=== PATIENT | female | born 1990 | race Two or more races ===

== ENCOUNTER 2017-10-30 17:18 | Emergency (ER) | payer OTHER | END 2017-10-30 17:48 | disposition home or self-care (01) | LOC: ER 17:18 | DX: B80 Enterobiasis (principal); Z90.49 Acquired absence of other specified parts of digestive tract | CPT/HCPCS: 99283 ==

== ENCOUNTER 2020-02-14 00:45 | Emergency (ER) | payer BC, OTHER ==
[~2020-02-14] VITALS: Ht 165.1 cm; Wt 65.0 kg
[~2020-02-14 00:45] MED LIST: DICY20TA30 PO; MEBE100T11 PO
--- NOTE | 2020-02-14 01:50 | PHYS DOC ---
Past Medical History Past Medical History: No Pertinent History, Migraines Past Surgical History: Appendectomy, , Tubal ligation Additional Past Surgical Histo: WISDOM TEETH Smoking Status: Never Smoker Alcohol Use: Occasionally Drug Use: None General Adult EDM: Chief Complaint: MULTIPLE COMPLAINTS HPI: HPI: The history was obtained from the patient. Patient is a 29-year-old female with PMH ynr-krmgihh-epajbxosp diabetic who presents with a chief complaint of nausea and lightheadedness. 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 She states she became acutely nauseous. She notes one episode of nonbloody nonbilious emesis prior to arrival. She states that she tried to sit down and eat something at work but she was too nauseous. She does note some a ssociated lightheadedness. Denies any vertiginous symptoms. States she has been drinking fluid at work. Denies chest pain or shortness of breath. Denies any syncope. Denies any feelings of irregular rapid heartbeat. States she is currently menstruating. Denies abdominal pain. D states she takes metformin daily. Denies any objective fevers. No other complaints. Review of Systems: Review of Systems: Constitutional: Denies fever or chills. [] Eyes: Denies change in visual acuity. [] HENT: Denies nasal congestion or sore throat. [] Respiratory: Denies cough or shortness of breath. [] Cardiovascular: Denies chest pain or edema. [] GI: Positive for nausea and vomiting : Denies dysuria. [] Musculoskeletal: Denies back pain or joint pain. [] Integument: Denies rash. [] Neurologic: Denies headache, focal weakness or sensory changes. [] Endocrine: Denies polyuria or polydipsia. [] Lymphatic: Denies swollen glands. [] Psychiatric: Denies depression or anxiety. [] Heart Score: Risk Factors: Risk Factors: DM, Current or recent (<one month) smoker, HTN, HLP, family history of CAD, obesity. Risk Scores: Score 0 - 3: 2.5% MACE over next 6 weeks - Discharge Home Score 4 - 6: 20.3% MACE over next 6 weeks - Admit for Clinical Observation Score 7 - 10: 72.7% MACE over next 6 weeks - Early Invasive Strategies Allergies: Allergies: Allergies Coded Allergies Type Severity Reaction Last Updated Verified No Known Drug Allergies 01/17/15 No Physical Exam: PE: Constitutional: Well developed, well nourished, no acute distress, non-toxic appearance. [] HENT: Normocephalic, atraumatic, bilateral external ears normal, oropharynx moist, no oral exudates, nose normal. [] Eyes: PERRLA, EOMI, conjunctiva normal, no discharge. [] Neck: Normal range of motion, no tenderness, supple, no stridor. [] Cardiovascular:Heart rate regular rhythm, no murmur [] Lungs & Thorax: Bilateral breath sounds clear to auscultation [] Abdomen: Soft, nontender, nonacute abdomen. No involuntary guarding or rigidity noted. No acute peritonitis. Skin: Warm, dry, no erythema, no rash. [] Back: No tenderness, no CVA tenderness. [] Extremities: No tenderness, no cyanosis, no clubbing, ROM intact, no edema. [] Neurologic: Alert with intact cognitive function. No aphasia, dysarthria, or neglect. GCS 15. Pupils 3 mm briskly reactive b/l. No APD present. Cranial nerves 2-12 grossly intact; no facial asymmetry present, tongue midline, shoulder shrugging strength intact. Strength 5/5 and symmetric throughout. Light touch sensation intact throughout. Cerebellar testing appropriate without evidence of dysdiadochokinesia. DTR's 2+ in all 4 extremities. Negative pronator drift bilaterally. Gait normal Psychologic: Affect normal, judgement normal, mood normal. [] Current Patient Data: Labs: Laboratory Tests Test 02/14/20 01:07 POC Urine HCG, Qualitative Hcg negative (Negative) Vital Signs: Vital Signs Date Time Temp Pulse Resp B/P (MAP) Pulse Ox O2 Delivery O2 Flow Rate FiO2 02/14/20 01:25 98.3 86 16 131/85 (100) 100 Room Air 98.3 EKG: EKG: EKG consistent with normal sinus rhythm. Ventricular rate of 75 bpm. [place] normal. Artifact is present making interpretation difficult but no acute ischemic changes appreciated. [] Radiology/Procedures: Radiology/Procedures: [facility] [address] [place], [place] [id number] IMAGING REPORT Signed PATIENT: RENETTAJERICHO ACCOUNT: [id number] : 1990 LOCATION: ER AGE: 29 SEX: F EXAM STATUS: REG ER ORD. PHYSICIAN: JOCELYN FLOREZ DO REASON: lightheaded PROCEDURE: CHEST AP ONLY CHEST AP ONLY Clinical Indication: Reason: lightheaded / Spl. Instructions: / History: Comparison: None. Findings: The cardiomediastinal silhouette is normal. Tiny bilateral calcified granulomas are suggested. Lungs are clear. There is no pneumothorax. No pleural effusion is appreciated. No acute bone abnormality. IMPRESSION: No acute cardiopulmonary process. Electronically signed by: Dean Garza MD (02/14/2020 2:08 AM) [facility] DICTATED and SIGNED BY: DEAN GARZA MD DATE: 02/14/208 [] Course & Med Decision Making: Course & Med Decision Making Pertinent Labs and Imaging studies reviewed. (See chart for details) [] Patient is a well-appearing 29-year-old female presents with chief complaint of nausea and lightheadedness. Initial vital signs normal. EKG unremarkable. Labs obtained and unremarkable. Patient was given IV fluids. She states her symptoms have improved. Do not feel she requires hospitalization. She has tolerated p.o. She will be discharged home with a prescription of Zofran. Return precautions discussed and understood. Stable for discharge home. Anastasia Disclaimer: Anastasia Disclaimer: This electronic medical record was generated, in whole or in part, using a voice recognition dictation system. Departure Departure Impression: Primary Impression: Nausea Disposition: 01 HOME, SELF-CARE Referrals: NO PCP (PCP) Patient Instructions: Nausea and Vomiting Additional Instructions: Please follow-up with your primary care physician in the next 2 to 3 days. Scripts Ondansetron Hcl (ZOFRAN) 4 Mg Tablet 4 MG PO PRN TID for nausea, #9 nausea/vomiting Prov: JOCELYN FLOREZ DO 02/14/20 Justicifation of Admission Dx: Justifications for Admission: Justification of Admission Dx: N/A JOCELYN FLOREZ DO Feb 14, 2020 01:50
[2020-02-14] MEDS ORDERED: IV NORMAL SALINE 1000ML BAG 1,000 ML IV ONE (02:00)
[2020-02-14] MEDS ORDERED: ONDANSETRON ODT 4 MG TAB.RAPDIS. PO ONE (02:00)
[2020-02-14 02:05] LABS: BASO # 0.1 x10^3/uL (0.0-0.2); BASO % 1 % (0-3); EOS # 0.2 x10^3/uL (0.0-0.7); EOS % 3 % (0-3); HEMATOCRIT 38.8 % (36.0-47.0); HEMOGLOBIN 12.9 g/dL (12.0-15.5); LYMPH # 2.9 x10^3/uL (1.0-4.8); LYMPH % 35 % (24-48); MEAN CORPUSCULAR HEMOGLOBIN 30 pg (25-35); MEAN CORPUSCULAR HGB CONC 33 g/dL (31-37); MEAN CORPUSCULAR VOLUME 91 fL (79-100); MONO # 0.4 x10^3/uL (0.0-1.1); MONO % 5 % (0-9); NEUT # 4.7 x10^3/uL (1.8-7.7); NEUT % 57 % (31-73); PLATELET COUNT 258 x10^3/uL (140-400); RED BLOOD COUNT 4.27 x10^6/uL (3.50-5.40); RED CELL DISTRIBUTION WIDTH 12.9 % (11.5-14.5); WHITE BLOOD COUNT 8.4 x10^3/uL (4.0-11.0)
--- NOTE | 2020-02-14 02:11 | RAD ---
CHEST AP ONLY Clinical Indication: Reason: lightheaded / Spl. Instructions: / History: Comparison: None. Findings: The cardiomediastinal silhouette is normal. Tiny bilateral calcified granulomas are suggested. Lungs are clear. There is no pneumothorax. No pleural effusion is appreciated. No acute bone abnormality. IMPRESSION: No acute cardiopulmonary process. Electronically signed by: Dean Garza MD (02/14/2020 2:08 AM) [facility]
[2020-02-14 02:12] LABS: BILIRUBIN,URINE NEGATIVE (NEG); CLARITY,URINE CLEAR; COLOR,URINE YELLOW; NITRITE,URINE NEGATIVE (NEG); PH,URINE 5.5 (<5.0-8.0); PROTEIN,URINE NEGATIVE (NEG-TRACE); UROBILINOGEN,URINE 0.2 mg/dL (0.2 mg/dL)
[2020-02-14 02:16] LABS: CREATININE 0.8 mg/dL (0.6-1.0); GFR 85.4; POTASSIUM 3.7 mmol/L (3.5-5.1)
[2020-02-14 02:17] LABS: BACTERIA,URINE 0 /HPF (0-FEW); RBC,URINE OCC /HPF (0-2); WBC,URINE OCC /HPF (0-4)
[2020-02-14 02:18] LABS: SQUAMOUS EPITHELIAL CELL,UR MOD /LPF
[2020-02-14] MEDS ORDERED: ONDA4TAB7 PO (02:33)
[2020-02-14 02:45] VITALS: BP 123/77
--- NOTE | 2020-02-14 07:15 | EKG ---
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
== END 2020-02-14 02:52 | disposition home or self-care (01) ==
LOC: ER 00:45
DX: R11.2 Nausea with vomiting, unspecified (principal); R42 Dizziness and giddiness; G43.909 Migraine, unspecified, not intractable, without status migrainosus; E11.9 Type 2 diabetes mellitus without complications; I48.92 Unspecified atrial flutter; Z90.89 Acquired absence of other organs; Z98.51 Tubal ligation status
CPT/HCPCS: 36415; 71045; 80048; 81001; 81025; 85025; 93005; 96360; 99285; J7030

== ENCOUNTER 2020-12-04 07:52 | Emergency (ER) | payer BC, OTHER ==
[~2020-12-04] VITALS: Ht 165.1 cm; Wt 91.9 kg
[~2020-12-04 07:52] MED LIST changes: +ONDA4TAB7 PO
--- NOTE | 2020-12-04 08:08 | ED.ADGEN ---
Past Medical History Past Medical History: No Pertinent History, Migraines Past Surgical History: Appendectomy, , Tubal ligation Additional Past Surgical Histo: WISDOM TEETH Smoking Status: Never Smoker Alcohol Use: Occasionally Drug Use: None General Adult EDM: Chief Complaint: MULTIPLE COMPLAINTS HPI: HPI: Patient is a 30 year old female coming in for multiple complaints. Patient states that she had a fever 5 days ago 102 but none currently. Has a nonproductive cough, sore throat, body aches. Patient has tried Mucinex and Z yrtec. Received her Covid vaccines 2 months ago. Denies sick contacts. Past medical history of type 2 diabetes. Review of Systems: Review of Systems: All other systems within normal limits except for as noted in the HPI Current Medications: Current Medications Medications (Trade) Dose Ordered Sig/Radha Start Time Stop Time Status Last Admin Dose Admin Ketorolac Tromethamine (Toradol Im) 60 mg 1X ONCE 12/04/20 08:30 12/04/20 08:31 DC 12/04/20 08:59 60 MG Prednisone (Prednisone) 50 mg 1X ONCE 12/04/20 08:30 12/04/20 08:31 DC 12/04/20 08:52 10 MG Allergies: Allergies: Allergies Coded Allergies Type Severity Reaction Last Updated Verified No Known Drug Allergies 01/17/15 No Physical Exam: PE: Constitutional: Well developed, well nourished, no acute distress, non-toxic appearance. [] HENT: Normocephalic, atraumatic, bilateral external ears normal, nose normal. Oropharynx moist without erythema or exudates [] Eyes: PERRLA, conjunctiva normal, no discharge. [] Neck: No rigidity, supple, no stridor. No cervical lymphadenopathy [] Cardiovascular: Regular rate and rhythm, brisk cap refill [] Lungs & Thorax: Non labored symmetric respirations, no tachypnea or respiratory distress. Lungs clear to all station [] Abdomen: Soft, nondistended. Skin: Warm, dry, no erythema, no rash. [] Back: Unremarkable Extremities: No deformities, range of motion grossly intact, no lower extremity edema [] Neurologic: Alert and oriented X 3, no focal deficits noted. [] Psychologic: Affect normal, judgement normal, mood normal. [] Current Patient Data: Labs: Laboratory Tests Test 12/04/20 08:10 Influenza Type A Antigen Negative (NEGATIVE) Influenza Type B Antigen Negative (NEGATIVE) Vital Signs: Vital Signs Date Time Temp Pulse Resp B/P (MAP) Pulse Ox O2 Delivery O2 Flow Rate FiO2 12/04/20 09:15 92 17 127/63 (84) 100 Room Air 12/04/20 08:05 97.9 97.9 EKG: EKG: [] Heart Score: C/O Chest Pain: No Risk Factors: Risk Factors: DM, Current or recent (<one month) smoker, HTN, HLP, family history of CAD, obesity. Risk Scores: Score 0 - 3: 2.5% MACE over next 6 weeks - Discharge Home Score 4 - 6: 20.3% MACE over next 6 weeks - Admit for Clinical Observation Score 7 - 10: 72.7% MACE over next 6 weeks - Early Invasive Strategies Radiology/Procedures: Radiology/Procedures: [address] [place] [address] IMAGING REPORT Signed PATIENT: JERICHO JACKSON ACCOUNT: [id number] : 1990 LOCATION: ER AGE: 30 SEX: F EXAM STATUS: REG ER ORD. PHYSICIAN: EMY CAIN MD REASON: cough,chest pain PROCEDURE: CHEST PA & LATERAL EXAM: Chest, 2 views. HISTORY: Cough. Chest pain. COMPARISON: 02/14/2020 FINDINGS: 2 views of the chest are obtained. There is no infiltrate, pleural effusion or pneumothorax. The heart is normal in size. IMPRESSION: No acute pulmonary finding. Electronically signed by: Alexandria Jiang MD (12/04/2020 8:45 AM) [id number] DICTATED and SIGNED BY: ALEXANDRIA JIANG MD DATE: 12/04/20 [id number] [] Course & Med Decision Making: Course & Med Decision Making Pertinent Labs and Imaging studies reviewed. (See chart for details) [] Dragon Disclaimer: Dragon Disclaimer: This electronic medical record was generated, in whole or in part, using a voice recognition dictation system. Departure Departure Impression: Primary Impression: Bronchitis Disposition: 01 HOME / SELF CARE / HOMELESS Condition: STABLE Referrals: NO PCP (PCP) Patient Instructions: Acute Bronchitis Scripts Prednisone (PREDNISONE) 50 Mg Tablet 1 TAB PO DAILY for steroid for 4 Days, #4 TAB Prov: MEY CAIN MD 12/04/20 Benzonatate (TESSALON PERLE) 100 Mg Capsule 1 CAP PO TID for cough, #21 CAP Prov: EMY CAIN MD 12/04/20 EMY CAIN MD Dec 04, 2020 08:08
[2020-12-04] MEDS ORDERED: predniSONE 10 MG TABLET PO ONE (08:30)
[2020-12-04] MEDS ORDERED: KETOROLAC 60 MG/2 ML VIAL. IM ONE (08:30)
--- NOTE | 2020-12-04 08:47 | RAD ---
EXAM: Chest, 2 views. HISTORY: Cough. Chest pain. COMPARISON: 02/14/2020 FINDINGS: 2 views of the chest are obtained. There is no infiltrate, pleural effusion or pneumothorax . The heart is normal in size. IMPRESSION: No acute pulmonary finding. Electronically signed by: Alexandria Jiang MD (12/04/2020 8:45 AM) [id number]
[2020-12-04 08:54] LABS: INFLUENZA A PATIENT NEGATIVE (NEGATIVE); INFLUENZA B PATIENT NEGATIVE (NEGATIVE)
[2020-12-04] MEDS ORDERED: PRED50TA PO (09:07)
[2020-12-04] MEDS ORDERED: BENZ100C PO (09:07)
[2020-12-04 09:15] VITALS: BP 127/63
== END 2020-12-04 09:15 | disposition home or self-care (01) ==
LOC: ER 07:52
DX: J40 Bronchitis, not specified as acute or chronic (principal); G43.909 Migraine, unspecified, not intractable, without status migrainosus; E11.9 Type 2 diabetes mellitus without complications
CPT/HCPCS: 71046; 87804; 96372; 99284; J1885; J7512

== ENCOUNTER 2020-12-25 19:39 | Emergency (ER) | payer OTHER ==
[~2020-12-25] VITALS: Ht 167.6 cm; Wt 81.8 kg
[~2020-12-25 19:39] MED LIST changes: +BENZ100C PO; +PRED50TA PO
[2020-12-25] MEDS ORDERED: IV NORMAL SALINE 1000ML BAG 1,000 ML IV ONE (20:45)
[2020-12-25] MEDS ORDERED: DEXAMETHASONE SOD PHOS 4 MG/ML VIAL IVP ONE (20:45)
[2020-12-25] MEDS ORDERED: KETOROLAC 15 MG/ML VIAL. IVP ONE (20:45)
[2020-12-25 20:48] LABS: BASO # 0.1 x10^3/uL (0.0-0.2); BASO % 1 % (0-3); EOS # 0.2 x10^3/uL (0.0-0.7); EOS % 2 % (0-3); HEMATOCRIT 39.2 % (36.0-47.0); HEMOGLOBIN 13.3 g/dL (12.0-15.5); LYMPH # 2.7 x10^3/uL (1.0-4.8); LYMPH % 26 % (24-48); MEAN CORPUSCULAR HEMOGLOBIN 31 pg (25-35); MEAN CORPUSCULAR HGB CONC 34 g/dL (31-37); MEAN CORPUSCULAR VOLUME 91 fL (79-100); MONO # 0.7 x10^3/uL (0.0-1.1); MONO % 7 % (0-9); NEUT # 6.5 x10^3/uL (1.8-7.7); NEUT % 64 % (31-73); PLATELET COUNT 247 x10^3/uL (140-400); RED BLOOD COUNT 4.29 x10^6/uL (3.50-5.40); RED CELL DISTRIBUTION WIDTH 13.5 % (11.5-14.5); WHITE BLOOD COUNT 10.2 x10^3/uL (4.0-11.0)
[2020-12-25 20:56] LABS: CALCIUM 8.8 mg/dL (8.5-10.1); CREATININE 0.7 mg/dL (0.6-1.0); GFR 98.9
--- NOTE | 2020-12-25 21:00 | PHYS DOC ---
Past Medical History Past Medical History: Diabetes-Type II, Migraines Past Surgical History: Appendectomy, , Tubal ligation Additional Past Surgical Histo: WISDOM TEETH Smoking Status: Never Smoker Alcohol Use: Occasionally Drug Use: None General Adult EDM: Chief Complaint: CHEST PAIN HPI: HPI: Patient is a 30 year old female presenting with chest pain. Patient reports left arm soreness and some numbness and tingling as well as burning pain this morning. This progressed to chest pain that the patient describes as sharp, burning and diffusely all over. She says the pain is worse with inspiration and with movement. She also reports mild left leg numbness and tingling upon standing. Patient reports an episode of bronchitis earlier this month and was prescribed a course of steroids. She says her current symptoms feel similar to when she had bronchitis. She denies headache, dizziness, nausea, vomiting or fever. She reports a few episodes of night sweats since her bronchitis. She completed her [employer] COVID-19 vaccination series on October 17, 2020. Review of Systems: Review of Systems: Constitutional: Denies fever. Reports some night sweats Eyes: Denies redness or eye pain HENT: Denies nasal congestion or sore throat Respiratory: Denies cough or shortness of breath Cardiovascular: Reports sharp burning chest pain, denies palpitations GI: Denies abdominal pain, nausea, or vomiting : Denies dysuria or hematuria Musculoskeletal: Denies back pain or joint pain Integument: Denies rash or skin lesions Neurologic: Denies headache. Reports burning pain and numbness and tingling in left arm Complete systems were reviewed and found to be within normal limits, except as documented in this note. Heart Score: C/O Chest Pain: Yes HEART Score for Chest Pain: HEART Score for Chest Pain Response (Comments) Value History Slighlty/Non-Suspicious 0 ECG Nonspecific Repolarizatio 1 Age < 45 0 Risk Factors 1 or 2 Risk Factors 1 Total 2 Risk Factors: Risk Factors: DM, Current or recent (<one month) smoker, HTN, HLP, family history of CAD, obesity. Risk Scores: Score 0 - 3: 2.5% MACE over next 6 weeks - Discharge Home Score 4 - 6: 20.3% MACE over next 6 weeks - Admit for Clinical Observation Score 7 - 10: 72.7% MACE over next 6 weeks - Early Invasive Strategies Allergies: Allergies: Allergies Coded Allergies Type Severity Reaction Last Updated Verified No Known Drug Allergies 01/17/15 No Physical Exam: PE: Constitutional: Well developed, well nourished, no acute distress, non-toxic appearance HENT: Normocephalic, atraumatic Eyes: PERRL, EOMI, conjunctiva normal, no discharge Neck: Normal range of motion, no tenderness, supple Lungs & Thorax: Reports burning sharp chest pain on inspiration, equal chest rise and fall Abdomen: Soft, no tenderness Skin: Warm, dry, no erythema, no rash Back: No tenderness, no CVA tenderness Extremities: All four extremities show no tenderness to palpation, sensations intact, ROM intact, no edema. +2 radial pulses bilaterally Neurologic: Alert and oriented X 3, normal motor function, normal sensory function, no focal deficits noted Psychologic: Affect normal, judgment normal Current Patient Data: Vital Signs: Vital Signs Date Time Temp Pulse Resp B/P (MAP) Pulse Ox O2 Delivery O2 Flow Rate FiO2 12/25/20 19:40 98.4 103 18 156/89 (84) 97 Room Air 98.4 EKG: EKG: Obtained at 1953 Sinus tachycardia at 101 bpm. QRS 92 ms QT 308 ms QTc 400 ms Radiology/Procedures: Radiology/Procedures: PROCEDURE: CT ANGIOGRAPHY CHEST CTA CHEST INDICATION: dyspnea, eval for PE Comparison: None. TECHNIQUE: Following the uneventful administration of intravenous contrast, 100 cc Omnipaque 350, axial CT sections were obtained through the lungs and upper abdomen. Multiplanar reconstructions and MIP images were obtained. PQRS compliance statement: One or more of the following individualized dose reduction techniques were utilized for this examination: 1. Automated exposure control 2. Adjustment of the mA and/or kV according to patient size 3. Use of iterative reconstruction technique FINDINGS: Lungs and Airways: No pulmonary mass or consolidation. No abnormality of the central airways. Pleura: The pleural spaces are normal. Heart and Mediastinum: The visualized thyroid is normal in size and attenuation. No axillary or supraclavicular lymphadenopathy. No mediastinal, hilar or retrocrural lymphadenopathy. The heart and pericardium are within normal limits. The great vessels of the thorax are normal. Abdomen: Hepatic steatosis. Bones and Soft Tissues: The visualized bones and chest wall soft tissues are within normal limits. IMPRESSION: 1. No evidence of pulmonary thromboembolic disease. 2. No pulmonary mass or consolidation. Electronically signed by: Liam Sierra MD (12/26/2020 12:39 AM) [facility] Course & Med Decision Making: Course & Med Decision Making Patient is a 30 year old female presenting with burning sharp chest pain radiating to the left upper extremity. Patient says the pain started earlier today and worsened throughout the day. It is worse with inspiration and movement. She reports having bronchitis earlier this month and says her symptoms feel similar to that. Her Troponin I is negative. Dragon Disclaimer: Dragon Disclaimer: This electronic medical record was generated, in whole or in part, using a voice recognition dictation system. Departure Departure Impression: Primary Impression: Pleuritic chest pain Disposition: HOME / SELF CARE / HOMELESS Condition: STABLE Referrals: LESLEE CALLES MD (PCP) Patient Instructions: Chest Pain (Nonspecific), Ebwe-vp-[id number], Pleurisy, Giio-rf-Tlap Scripts Prednisone (PREDNISONE) 20 Mg Tablet 2 TAB PO DAILY, #8 TAB Prov: LESLEE RAUSCH DO 12/26/20 Albuterol Sulfate (PROAIR HFA INHALER) 8.5 Gm Hfa.aer.ad 2 PUFF IH PRN Q4-6HRS PRN for wheezing for 21 Days, #1 INHALER 0 Refills Prov: LESLEE RAUSCH DO 12/26/20 LESLEE RAUSCH DO Dec 25, 2020 21:00
[2020-12-25 21:02] LABS: ALBUMIN 3.5 g/dL (3.4-5.0); ALBUMIN/GLOBULIN RATIO 0.8 (1.0-1.7); MAGNESIUM 2.1 mg/dL (1.8-2.4); TOTAL BILIRUBIN 0.5 mg/dL (0.2-1.0); TOTAL PROTEIN 7.7 g/dL (6.4-8.2)
[2020-12-25] MEDS ORDERED: CONTRAST GIVEN. MC PRN (22:45)
[2020-12-25] MEDS ORDERED: IOHEXOL 350 MG/ML 100 ML VIAL. IV ONE (22:45)
[2020-12-25] MEDS ORDERED: fentaNYL PF VIAL 100 MCG/2 ML VIAL IV ONE (23:00)
[2020-12-25 23:29] LABS: CLARITY,URINE CLEAR; COLOR,URINE YELLOW
[2020-12-25 23:30] LABS: BACTERIA,URINE MODERATE /HPF (0-FEW); BILIRUBIN,URINE NEGATIVE (NEG); NITRITE,URINE NEGATIVE (NEG); PROTEIN,URINE NEGATIVE (NEG-TRACE); RBC,URINE 0 /HPF (0-2); UROBILINOGEN,URINE 0.2 mg/dL (0.2 mg/dL)
--- NOTE | 2020-12-26 00:41 | RAD ---
CTA CHEST INDICATION: dyspnea, eval for PE Comparison: None. TECHNIQUE: Following the uneventful administration of intravenous contrast, 100 cc Omnipaque 350, axi al CT sections were obtained through the lungs and upper abdomen. Multiplanar reconstructions and MIP images were obtained. PQRS compliance statement: One or more of the following individualized dose reduction techniques were utilized for this examinat ion: 1. Automated exposure control 2. Adjustment of the mA and/or kV according to patient size 3. Use of iterative reconstruction technique FINDINGS: Lungs and Airways: No pulmonary mass or consolidation. No abnormality of the central airways. Pleura: The pleural spaces are normal. Heart and Mediastinum: The visualized thyroid is normal in size and attenuation. No axillary or supra clavicular lymphadenopathy. No mediastinal, hilar or retrocrural lymphadenopathy. The heart and peric ardium are within normal limits. The great vessels of the thorax are normal. Abdomen: Hepatic steatosis. Bones and Soft Tissues: The visualized bones and chest wall soft tissues are within normal limits. IMPRESSION: 1. No evidence of pulmonary thromboembolic disease. 2. No pulmonary mass or consolidation. Electronically signed by: Liam Sierra MD (12/26/2020 12:39 AM) [facility]
[2020-12-26 01:06] VITALS: BP 122/60
[2020-12-26] MEDS ORDERED: PRED20TA PO (01:08)
[2020-12-26] MEDS ORDERED: ALBU2.5V8 IH (01:08)
--- NOTE | 2020-12-26 02:37 | EKG ---
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
== END 2020-12-26 01:30 | disposition home or self-care (01) ==
LOC: ER 19:39
DX: R07.81 Pleurodynia (principal); E11.9 Type 2 diabetes mellitus without complications; G43.909 Migraine, unspecified, not intractable, without status migrainosus
CPT/HCPCS: 36415; 71275; 80053; 81001; 81025; 82553; 83735; 83880; 84484; 85025; 87086; 93005; 96361; 96374; 96375; 99285; J1100; J1885; J3010; J7030; Q9967

== ENCOUNTER 2021-09-01 03:06 | Emergency (ER) | payer OTHER ==
[~2021-09-01] VITALS: Ht 160 cm; Wt 81.8 kg
[~2021-09-01 03:06] MED LIST changes: +ALBU2.5V8 IH; +PRED20TA PO
--- NOTE | 2021-09-01 03:32 | PHYS DOC ---
Past Medical History Past Medical History: Diabetes-Type II, Migraines Additional Past Medical Histor: High cholesterol (GLENN STOUT MD) Past Surgical History: Appendectomy, Tubal ligation Additional Past Surgical Histo: WISDOM TEETH (GLENN STOUT MD) Smoking Status: Never Smoker Alcohol Use: None Drug Use: None (GLENN STOUT MD) Adult General Chief Complaint Chief Complaint: CHEST PAIN HPI HPI The patient is a 31-year-old female never smoker with a history of hypertension, hyperlipidemia and [id number] diabetes. Ms. Richardson presents for evaluation of pleuritic midsternal sharp nonradiating chest discomfort with onset about 2 hours prior to arrival, awakening her from sleep. Associated mild shortness of breath because it hurts to take a deep breath. No associated fevers, vomiting, cold sweats or chills, upper respiratory congestion/rhinorrhea, cough, sore throat, abdominal pain of any kind, flank pain, midline back pain, dysuria, hematuria, polyuria or oliguria, changes in bowel habits, pain or swelling to arms or legs. Patient is alert and pleasantly and appropriately interactive and in no acute distress with appropriate vital signs upon initial evaluation here in the emergency department. Triage EKG is nonischemic. (GLENN STOUT MD) Review of Systems Review of Systems A 12 point review of systems was completed and was negative except where noted in HPI above. (GLENN STOUT MD) Current Medications Current Medications Current Medications Medications (Trade) Dose Ordered Sig/Radha Start Time Stop Time Status Last Admin Dose Admin Acetaminophen (Tylenol) 1,000 mg 1X ONCE 09/01/21 04:00 09/01/21 04:01 DC 09/01/21 03:43 1,000 MG Aspirin (Windy Aspirin) 325 mg 1X ONCE 09/01/21 04:00 09/01/21 04:01 DC 09/01/21 03:43 325 MG Famotidine (Pepcid Vial) 20 mg 1X ONCE 09/01/21 04:00 09/01/21 04:01 DC 09/01/21 03:43 20 MG Ketorolac Tromethamine (Toradol 15mg Vial) 15 mg 1X ONCE 09/01/21 05:00 09/01/21 05:01 DC 09/01/21 04:39 15 MG Morphine Sulfate (Morphine Sulfate) 2 mg 1X ONCE 09/01/21 05:00 09/01/21 05:01 DC 09/01/21 04:33 2 MG Multi-Ingredient Mouthwash/Gargle (Gi Cocktail) 20 ml 1X ONCE 09/01/21 04:00 09/01/21 04:01 DC 09/01/21 03:43 20 ML Orphenadrine Citrate (Norflex) 30 mg 1X ONCE 09/01/21 06:00 09/01/21 06:01 DC 09/01/21 06:05 30 MG (IWLBER GRIER DO) Allergies Allergies Allergies Coded Allergies Type Severity Reaction Last Updated Verified No Known Drug Allergies 09/01/21 No (WILBER GRIER DO) Physical Exam Physical Exam 31-year-old female appearing nontoxic and in no acute distress. She does appear anxious. Head is normocephalic and atraumatic. Neck is supple and nontender. No JVD. No carotid bruits. Oropharynx is moist. Lungs are clear to auscultation at all stations. There is a normal S1 and S2 without rubs or gallops and capillary refill is appropriate, less than 2 seconds globally. Abdomen is soft, nontender and nondistended. Skin is warm and dry without cyanosis, clubbing or edema. Psychiatrically, the patient demonstrates appropriate mood and affect and is alert. Evaluation of the extremities reveals BUEs and BLEs neurovascularly intact distally with strength over the 5, sensation intact light touch in all nerve distributions, radial, DP and PT pulses 2+ and equal bilaterally, capillary refill less than 2 seconds, hands and feet warm and well-perfused. No dependent peripheral edema distally. No calf tenderness or swelling bilaterally. Homans test is negative bilaterally. (GLENN STOUT MD) Current Patient Data Vital Signs Vital Signs Date Time Temp Pulse Resp B/P (MAP) Pulse Ox O2 Delivery O2 Flow Rate FiO2 09/01/21 07:10 78 16 100/49 (66) 98 Room Air 09/01/21 03:10 98.3 98.3 (WILBER GRIER DO) Lab Values Laboratory Tests Test 09/01/21 03:21 09/01/21 05:50 White Blood Count 11.1 x10^3/uL (4.0-11.0) H Red Blood Count 4.25 x10^6/uL (3.50-5.40) Hemoglobin 13.1 g/dL (12.0-15.5) Hematocrit 39.1 % (36.0-47.0) Mean Corpuscular Volume 92 fL (79-100) Mean Corpuscular Hemoglobin 31 pg (25-35) Mean Corpuscular Hemoglobin Concent 33 g/dL (31-37) Red Cell Distribution Width 12.9 % (11.5-14.5) Platelet Count 288 x10^3/uL (140-400) Neutrophils (%) (Auto) 58 % (31-73) Lymphocytes (%) (Auto) 33 % (24-48) Monocytes (%) (Auto) 6 % (0-9) Eosinophils (%) (Auto) 2 % (0-3) Basophils (%) (Auto) 1 % (0-3) Neutrophils # (Auto) 6.5 x10^3/uL (1.8-7.7) Lymphocytes # (Auto) 3.6 x10^3/uL (1.0-4.8) Monocytes # (Auto) 0.6 x10^3/uL (0.0-1.1) Eosinophils # (Auto) 0.3 x10^3/uL (0.0-0.7) Basophils # (Auto) 0.1 x10^3/uL (0.0-0.2) Prothrombin Time 12.8 SEC (11.7-14.0) Prothrombin Time INR 1.0 (0.8-1.1) Activated Partial Thromboplast Time 32 SEC (24-38) D-Dimer (Kathleen) 0.28 ug/mlFEU (0.00-0.50) Sodium Level 137 mmol/L (136-145) Potassium Level 3.7 mmol/L (3.5-5.1) Chloride Level 101 mmol/L (98-107) Carbon Dioxide Level 28 mmol/L (21-32) Anion Gap 8 (6-14) Blood Urea Nitrogen 6 mg/dL (7-20) L Creatinine 0.7 mg/dL (0.6-1.0) Estimated GFR (Cockcroft-Gault) 98.3 BUN/Creatinine Ratio 9 (6-20) Glucose Level 170 mg/dL (70-99) H Calcium Level 9.1 mg/dL (8.5-10.1) Total Bilirubin 0.5 mg/dL (0.2-1.0) Aspartate Amino Transferase (AST) 26 U/L (15-37) Alanine Aminotransferase (ALT) 22 U/L (14-59) Alkaline Phosphatase 64 U/L (46-116) Troponin I High Sensitivity 12 ng/L (4-50) 11 ng/L (4-50) AX-Xhc-S-Type Natriuretic Peptide 12 pg/mL (0-124) Total Protein 8.2 g/dL (6.4-8.2) Albumin 3.9 g/dL (3.4-5.0) Albumin/Globulin Ratio 0.9 (1.0-1.7) L Serum Test, Qualitative Negative (NEG) Laboratory Tests 09/01/21 03:21 Laboratory Tests 09/01/21 03:21 (WILBER GRIER DO) Lab Values Laboratory Tests Test 09/01/21 03:21 White Blood Count 11.1 x10^3/uL (4.0-11.0) H Red Blood Count 4.25 x10^6/uL (3.50-5.40) Hemoglobin 13.1 g/dL (12.0-15.5) Hematocrit 39.1 % (36.0-47.0) Mean Corpuscular Volume 92 fL (79-100) Mean Corpuscular Hemoglobin 31 pg (25-35) Mean Corpuscular Hemoglobin Concent 33 g/dL (31-37) Red Cell Distribution Width 12.9 % (11.5-14.5) Platelet Count 288 x10^3/uL (140-400) Neutrophils (%) (Auto) 58 % (31-73) Lymphocytes (%) (Auto) 33 % (24-48) Monocytes (%) (Auto) 6 % (0-9) Eosinophils (%) (Auto) 2 % (0-3) Basophils (%) (Auto) 1 % (0-3) Neutrophils # (Auto) 6.5 x10^3/uL (1.8-7.7) Lymphocytes # (Auto) 3.6 x10^3/uL (1.0-4.8) Monocytes # (Auto) 0.6 x10^3/uL (0.0-1.1) Eosinophils # (Auto) 0.3 x10^3/uL (0.0-0.7) Basophils # (Auto) 0.1 x10^3/uL (0.0-0.2) Prothrombin Time 12.8 SEC (11.7-14.0) Prothrombin Time INR 1.0 (0.8-1.1) Activated Partial Thromboplast Time 32 SEC (24-38) D-Dimer (Kathleen) 0.28 ug/mlFEU (0.00-0.50) Sodium Level 137 mmol/L (136-145) Potassium Level 3.7 mmol/L (3.5-5.1) Chloride Level 101 mmol/L (98-107) Carbon Dioxide Level 28 mmol/L (21-32) Anion Gap 8 (6-14) Blood Urea Nitrogen 6 mg/dL (7-20) L Creatinine 0.7 mg/dL (0.6-1.0) Estimated GFR (Cockcroft-Gault) 98.3 BUN/Creatinine Ratio 9 (6-20) Glucose Level 170 mg/dL (70-99) H Calcium Level 9.1 mg/dL (8.5-10.1) Total Bilirubin 0.5 mg/dL (0.2-1.0) Aspartate Amino Transferase (AST) 26 U/L (15-37) Alanine Aminotransferase (ALT) 22 U/L (14-59) Alkaline Phosphatase 64 U/L (46-116) Troponin I High Sensitivity 12 ng/L (4-50) JC-Ubk-P-Type Natriuretic Peptide 12 pg/mL (0-124) Total Protein 8.2 g/dL (6.4-8.2) Albumin 3.9 g/dL (3.4-5.0) Albumin/Globulin Ratio 0.9 (1.0-1.7) L Serum Test, Qualitative Negative (NEG) Laboratory Tests 09/01/21 03:21 Laboratory Tests 09/01/21 03:21 (GLENN STOUT MD) EKG EKG Sinus rhythm, rate 88, first-degree AV block, no acute ST elevation or depre ssion, NC 230, QRS 104, QTc 427, EP interpretation. Nonischemic tracing, intervals appropriate. (GLENN STOUT MD) Radiology/Procedures Radiology/Procedures EXAMINATION: RIGHT UPPER QUADRANT ULTRASOUND CLINICAL HISTORY: Right upper quadrant abdominal pain, chest pain. TECHNIQUE: Sonography of the right upper quadrant was performed. COMPARISON: None FINDINGS: Pancreas: Not visualized secondary to prominent overlying bowel gas. Liver: - Echotexture: Normal, homogeneous. - Echogenicity: Increased, suggestive of steatosis - Surface contour: Smooth - Lesions: None. Biliary: No intrahepatic biliary duct dilation. - CBD: 5 mm. - Gallbladder: Normal caliber - Contents: No cholelithiasis - Wall: Normal - Other: No pericholecystic fluid. Right Kidney: Measures 10.7 cm in length. No hydronephrosis or focal lesion. Ascites: None. Aorta/IVC: Partially visualized aorta and IVC unremarkable. IMPRESSION: Findings suggestive of hepatic steatosis. Nonvisualized pancreas. Electronically signed by: Ye Escudero DO (09/01/2021 4:51 AM) RAUL DICTATED and SIGNED BY: YE ESCDUERO DO DATE: 09/01/21 045 EXAMINATION: XR CHEST 1V CLINICAL HISTORY: Chest pain. EXAM DATE/TIME: 09/01/2021 3:34 AM COMPARISON: 12/04/2020 FINDINGS: Lines, Tubes, and Devices: None. Cardiomediastinal Silhouette: Within normal limits. Lungs and Pleura: Pulmonary hypoexpansion without evidence of focal airspace consolidation, pleural effusion, or pneumothorax. Bones and Soft Tissues: No acute osseous abnormality. IMPRESSION: No evidence of acute cardiopulmonary abnormality or significant interval change. Electronically signed by: Ye Escudero DO (09/01/2021 3:42 AM) RAUL DICTATED and SIGNED BY: YE ESCUDERO DO DATE: 09/01/21 034 (GLENN STOUT MD) Course & Med Decision Making Course & Med Decision Making HEART score 2 for 3 risk factors (HTN, HLD, DM), low risk for MACE. Wells low risk for PE. 31-year-old female here with atypical pleuritic discomfort with onset a little earlier overnight. Triage EKG nonischemic. Vital signs and clinical examination are reassuring. Will check labs, chest x-ray and right upper quadrant ultrasound as noted and will give a full-strength aspirin and additional medication for discomfort as noted and will then reevaluate. 0600: Results of work-up benign as above. Patient endorses continuing chest discomfort, a little better than it was on arrival. Will try dose of Norflex. Checking delta troponin. Transition of care at this time to Dr. Grier. Disposition decision will be as per her. (GLENN STOUT MD) Course & Med Decision Making This patient was initially seen by Dr. Stout. Please see his note for details of H&P and HPI. Second troponin is negative. The patient appears to be resting very comfortably, manifest evidence of distress. She reports no active pain at this time. Vital signs are all stable. I have discussed the findings, differential diagnosis and plan of care. I reviewed her EKG, which is unremarkable, no acute ischemia. I recommend that she follow-up with her PCP. She is given formation for outpatient follow-up with GI and cardiology. I gave her very strict return precautions. She feels comfortable to plan for discharge home. (WILBER GRIER DO) Dragon Disclaimer Dragon Disclaimer This electronic medical record was generated, in whole or in part, using a voice recognition dictation system. (GLENN STOUT MD) Departure Departure Impression: Primary Impression: Pleuritic chest pain Disposition: HOME / SELF CARE / HOMELESS Condition: STABLE Referrals: LESLEE CALLES MD (PCP) OMAIRA FINNEY MD, SCOTT S MD Patient Instructions: Chest Pain (Nonspecific) Additional Instructions: Return to the ER for more severe pain, severe shortness of breath, coughing up b lood, vomiting blood, severe abdominal pain, uncontrolled vomiting, dehydration or for other concerns. Use the prescribed medication as needed/as directed. Please follow-up with outpatient GI services and outpatient cardiology services. Please also contact your PCP for follow-up. Scripts Ondansetron Hcl (ONDANSETRON HCL) 4 Mg Tablet 1 TAB PO PRN Q6HRS for nasuea or vomiting, #10 TAB 1 Refill Prov: WILBER GRIER DO 09/01/21 Famotidine (PEPCID) 20 Mg Tablet 20 MG PO BID, #60 TAB Prov: WILBER GRIER DO 09/01/21 GLENN STOUT MD Sep 01, 2021 03:32 WILBER GRIER DO Sep 01, 2021 07:10
[2021-09-01 03:33] LABS: BASO # 0.1 x10^3/uL (0.0-0.2); BASO % 1 % (0-3); EOS # 0.3 x10^3/uL (0.0-0.7); EOS % 2 % (0-3); HEMATOCRIT 39.1 % (36.0-47.0); HEMOGLOBIN 13.1 g/dL (12.0-15.5); LYMPH # 3.6 x10^3/uL (1.0-4.8); LYMPH % 33 % (24-48); MEAN CORPUSCULAR HEMOGLOBIN 31 pg (25-35); MEAN CORPUSCULAR HGB CONC 33 g/dL (31-37); MEAN CORPUSCULAR VOLUME 92 fL (79-100); MONO # 0.6 x10^3/uL (0.0-1.1); MONO % 6 % (0-9); NEUT # 6.5 x10^3/uL (1.8-7.7); NEUT % 58 % (31-73); PLATELET COUNT 288 x10^3/uL (140-400); RED BLOOD COUNT 4.25 x10^6/uL (3.50-5.40); RED CELL DISTRIBUTION WIDTH 12.9 % (11.5-14.5); WHITE BLOOD COUNT 11.1 x10^3/uL (4.0-11.0)
[2021-09-01 03:43] LABS: CALCIUM 9.1 mg/dL (8.5-10.1); CREATININE 0.7 mg/dL (0.6-1.0); GFR 98.3; POTASSIUM 3.7 mmol/L (3.5-5.1); PROTHROMBIN TIME PATIENT 12.8 SEC (11.7-14.0)
--- NOTE | 2021-09-01 03:44 | RAD ---
EXAMINATION: XR CHEST 1V CLINICAL HISTORY: Chest pain. EXAM DATE/TIME: 09/01/2021 3:34 AM COMPARISON: 12/04/2020 FINDINGS: Lines, Tubes, and Devices: None. Cardiomediastinal Silhouette: Within normal limits. Lungs and Pleura: Pulmonary hypoexpansion without evidence of focal airspace consolidation, pleural e ffusion, or pneumothorax. Bones and Soft Tissues: No acute osseous abnormality. IMPRESSION: No evidence of acute cardiopulmonary abnormality or significant interval change. Electronically signed by: Ye Schroeder DO (09/01/2021 3:42 AM) RAUL
[2021-09-01 03:45] LABS: PREG TEST PT QUAL NEGATIVE (NEG)
[2021-09-01 03:48] LABS: D-DIMER 0.28 ug/mlFEU (0.00-0.50)
[2021-09-01 03:49] LABS: ALBUMIN 3.9 g/dL (3.4-5.0); ALBUMIN/GLOBULIN RATIO 0.9 (1.0-1.7); TOTAL BILIRUBIN 0.5 mg/dL (0.2-1.0); TOTAL PROTEIN 8.2 g/dL (6.4-8.2)
[2021-09-01] MEDS ORDERED: LIDO:MAALOX 1:1 20 ML SINGLE DOSE. SWSW ONE (04:00)
[2021-09-01] MEDS ORDERED: FAMOTIDINE 20 MG/2 ML VIAL IVP ONE (04:00)
[2021-09-01] MEDS ORDERED: ASPIRIN 325 MG TABLET PO ONE (04:00)
[2021-09-01] MEDS ORDERED: ACETAMINOPHEN 500 MG TABLET PO ONE (04:00)
--- NOTE | 2021-09-01 04:12 | EKG ---
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
--- NOTE | 2021-09-01 04:54 | RAD ---
EXAMINATION: RIGHT UPPER QUADRANT ULTRASOUND CLINICAL HISTORY: Right upper quadrant abdominal pain, chest pain. TECHNIQUE: Sonography of the right upper quadrant was performed. COMPARISON: None FINDINGS: Pancreas: Not visualized secondary to prominent overlying bowel gas. Liver: - Echotexture: Normal, homogeneous. - Echogenicity: Increased, suggestive of steatosis - Surface contour: Smooth - Lesions: None. Biliary: No intrahepatic biliary duct dilation. - CBD: 5 mm. - Gallbladder: Normal caliber - Contents: No cholelithiasis - Wall: Normal - Other: No pericholecystic fluid. Right Kidney: Measures 10.7 cm in length. No hydronephrosis or focal lesion. Ascites: None. Aorta/IVC: Partially visualized aorta and IVC unremarkable. IMPRESSION: Findings suggestive of hepatic steatosis. Nonvisualized pancreas. Electronically signed by: Ye Schroeder DO (09/01/2021 4:51 AM) [facility]
[2021-09-01] MEDS ORDERED: KETOROLAC 15 MG/ML VIAL. IVP ONE (05:00)
[2021-09-01] MEDS ORDERED: MORPHINE SULFATE 2 MG/ML INJ. IVP ONE (05:00)
[2021-09-01] MEDS ORDERED: ORPHENADRINE CITRATE 60 MG/2 ML VIAL. IV ONE (06:00)
[2021-09-01 07:10] VITALS: BP 100/49
[2021-09-01] MEDS ORDERED: FAMO-63 PO (07:10)
[2021-09-01] MEDS ORDERED: ONDA-84 PO (07:10)
== END 2021-09-01 07:25 | disposition home or self-care (01) ==
LOC: ER 03:06
DX: R07.81 Pleurodynia (principal); R06.02 Shortness of breath; E11.9 Type 2 diabetes mellitus without complications; G43.909 Migraine, unspecified, not intractable, without status migrainosus; E78.00 Pure hypercholesterolemia, unspecified
CPT/HCPCS: 36415; 71045; 76705; 80053; 83880; 84484; 84703; 85025; 85379; 85610; 85730; 93005; 96374; 96375; 99285; J1885; J2270; J2360; J3490

== ENCOUNTER 2021-09-06 14:15 | Emergency (ER) | payer OTHER ==
[~2021-09-06] VITALS: Ht 167.6 cm; Wt 80.9 kg
[~2021-09-06 14:15] MED LIST changes: +FAMO-63 PO; +ONDA-84 PO
[2021-09-06 14:17] VITALS: BP 124/66
[2021-09-06] MEDS ORDERED: KETOROLAC 60 MG/2 ML VIAL. IM ONE (15:00)
--- NOTE | 2021-09-06 15:29 | RAD ---
EXAMINATION: XR EXAM OF ANKLE_LEFT 3V. HISTORY: 31 years Female Reason: pain.Pt states she fell yesterday, pain swelling to ankle COMPARISON: None. FINDINGS: No fracture, dislocation or radiopaque foreign body. The joint spaces and articular surfaces appea r unremarkable. Diffuse soft tissue swelling seen. IMPRESSION: Soft tissue swelling. No fracture. Electronically signed by: Irvin Blackwood MD (09/06/2021 3:26 PM) [id number]
--- NOTE | 2021-09-06 16:26 | PHYS DOC ---
Past Medical History Past Medical History: Diabetes-Type II, Migraines Additional Past Medical Histor: High cholesterol Past Surgical History: Appendectomy, Tubal ligation Additional Past Surgical Histo: WISDOM TEETH Smoking Status: Never Smoker Alcohol Use: Occasionally Drug Use: None General Adult EDM: Chief Complaint: ANKLE PROBLEM HPI: HPI: Patient is a 31 year old female presents to the ER with left ankle pain. Patient states that she slipped off the stairs and rolled her ankle inwards. Patient states the pain is worse with ambulation or weightbearing. Denies any numbness or tingling denies any proximal tib-fib pain. Review of Systems: Review of Systems: Constitutional: Denies fever or chills. Eyes: Denies change in visual acuity. HENT: Denies nasal congestion or sore throat. Respiratory: Denies cough or shortness of breath. Cardiovascular: Denies chest pain or edema. GI: Denies abdominal pain, nausea, vomiting, bloody stools or diarrhea. : Denies dysuria. Musculoskeletal: Patient reports left ankle injury denies back pain or joint pain. Integument: Denies rash. Neurologic: Denies headache, focal weakness or sensory changes. Endocrine: Denies polyuria or polydipsia. Lymphatic: Denies swollen glands. Psychiatric: Denies depression or anxiety. Heart Score: C/O Chest Pain: No Risk Factors: Risk Factors: DM, Current or recent (<one month) smoker, HTN, HLP, family history of CAD, obesity. Risk Scores: Score 0 - 3: 2.5% MACE over next 6 weeks - Discharge Home Score 4 - 6: 20.3% MACE over next 6 weeks - Admit for Clinical Observation Score 7 - 10: 72.7% MACE over next 6 weeks - Early Invasive Strategies Current Medications: Current Medications Medications (Trade) Dose Ordered Sig/[facility] Start Time Stop Time Status Last Admin Dose Admin Ketorolac Tromethamine (Toradol Im) 30 mg 1X ONCE 09/06/21 15:00 09/06/21 15:01 DC 09/06/21 15:14 30 MG Allergies: Allergies: Allergies Coded Allergies Type Severity Reaction Last Updated Verified No Known Drug Allergies 09/01/21 No Physical Exam: PE: Constitutional: Well developed, well nourished, no acute distress, non-toxic appearance. HENT: Normocephalic, atraumatic, bilateral external ears normal, oropharynx moist, no oral exudates, nose normal. Eyes: PERRLA, EOMI, conjunctiva normal, no discharge. Neck: Normal range of motion, no tenderness, supple, no stridor. Cardiovascular:Heart rate regular rhythm, no murmur Lungs & Thorax: Bilateral breath sounds clear to auscultation Abdomen: Bowel sounds normal, soft, no tenderness, no masses, no pulsatile masses. Skin: Warm, dry, no erythema, no rash. Back: No tenderness, no CVA tenderness. Extremities: Patient has tenderness over the lateral malleoli. Patient does not have any tenderness over the proximal fibula. Soft tissue swelling over the ankle. No obvious deformity no ecchymosis good distal pulses Neurologic: Alert and oriented X 3, normal motor function, normal sensory function, no focal deficits noted. Psychologic: Affect normal, judgement normal, mood normal. Current Patient Data: Labs: Laboratory Tests Test 09/06/21 15:04 POC Urine HCG, Qualitative Hcg negative (Negative) Vital Signs: Vital Signs Date Time Temp Pulse Resp B/P (MAP) Pulse Ox O2 Delivery O2 Flow Rate FiO2 09/06/21 14:17 98.8 16 124/66 (85) 97 Room Air 98.8 EKG: EKG: [] Radiology/Procedures: Radiology/Procedures: []MPRESSION: Soft tissue swelling. No fracture. Course & Med Decision Making: Course & Med Decision Making Pertinent Labs and Imaging studies reviewed. (See chart for details) MPRESSION: Soft tissue swelling. No fracture. Patient has reviewed the x-ray results. Patient will follow up with orthopedics in the outpatient setting placed on crutches with an Stan wrap. Anastasia Disclaimer: Anastasia Disclaimer: This electronic medical record was generated, in whole or in part, using a voice recognition dictation system. Departure Departure Impression: Primary Impression: Ankle sprain Disposition: HOME / SELF CARE / HOMELESS Condition: STABLE Referrals: PHI TORO KENT C DO Sep 06, 2021 16:26
[2021-09-06] MEDS ORDERED: IBUP-1007 PO (16:27)
== END 2021-09-06 17:19 | disposition home or self-care (01) ==
LOC: ER 14:15
DX: S93.402A Sprain of unspecified ligament of left ankle, initial encounter (principal); G43.909 Migraine, unspecified, not intractable, without status migrainosus; E11.9 Type 2 diabetes mellitus without complications; E78.00 Pure hypercholesterolemia, unspecified; W01.0XXA Fall on same level from slipping, tripping and stumbling without subsequent striking against object, initial encounter; Y93.89 Activity, other specified; Y92.89 Other specified places as the place of occurrence of the external cause; Y99.8 Other external cause status
CPT/HCPCS: 73610; 81025; 96372; 99283; J1885; A6450